=== PATIENT | female | born 1965 | race Caucasian/White ===

== ENCOUNTER → 2023-07-02 10:08 | Day surgery (SDC) | payer BC, SELFPAY | LOC: GI 10:08 | PROVIDERS: ATTENDING PHYSICIAN Internal Medicine Gastroenterology | DX: K31.7 Polyp of stomach and duodenum (principal); K44.9 Diaphragmatic hernia without obstruction or gangrene; Z13.810 Encounter for screening for upper gastrointestinal disorder; Z87.19 Personal history of other diseases of the digestive system; Z80.0 Family history of malignant neoplasm of digestive organs | CPT/HCPCS: 43239; 88305 ==